=== PATIENT | male | born 1950 | race Caucasian/White ===

== ENCOUNTER 2017-07-27 21:10 | Emergency (ER) | payer SELFPAY ==
[~2017-07-27 21:10] MED LIST: Iopamidol 370 76% 100 ML VIAL ONE
[2017-07-27 21:46] LABS: INR-International Normal Ratio 0.9; PTT 30.9 SEC (22.9-36.1); Prothrombin Time 12.6 SEC (12.0-14.7)
[2017-07-27 21:55] LABS: ALT (SGPT) 22 U/L (8-55); AST (SGOT) 30 U/L (5-34); Acetaminophen Less than 6.0 mcg/mL (10.0-30.0); Albumin 3.3 g/dL (3.4-4.8); Alcohol 53 mg/dL (Less than 10); Alkaline Phosphatase 102 U/L (40-150); Anion Gap 16 mmol/L (10-20); BUN (Urea Nitrogen) 5 mg/dL (8.4-25.7); Bilirubin, Total 0.7 mg/dL (0.2-1.2); Calc. Creatinine Clearance 0 mL/min (70-130); Calcium 8.6 mg/dL (7.8-10.44); Carbon Dioxide 22 mmol/L (23-31); Chloride 95 mmol/L (98-107); Estimated GFR-MDRD Greater than 90; Globulin 3.2 g/dL (2.4-3.5); Glucose 170 mg/dL (80-115); Potassium 3.3 mmol/L (3.5-5.1); Protein, Total 6.5 g/dL (5.8-8.1); Salicylate Less than 8.0 mg/dL (15.0-30.0); Sodium 130 mmol/L (136-145)
[2017-07-27 21:56] LABS: #Basophils 0.1 thou/uL (0.0-0.2); #Eosinphils 0.1 thou/uL (0.0-0.7); #Lymphocytes 1.6 thou/uL (1.20-3.40); #Monocytes 0.7 thou/uL (0.11-0.59); #Neutrophils 6.5 thou/uL (1.40-6.50); %Basophils 0.8 % (0.0-1.0); %Eosinophils 0.7 % (0.0-10.0); %Lymphocytes 17.5 % (21.0-51.0); %Monocytes 7.8 % (0.0-10.0); %Neutrophils 73.1 % (42.0-75.0); Hemoglobin 14.2 g/dL (14.0-18.0); Mean Corpuscular HGB CONC 35.8 g/dL (32.0-36.0); Mean Corpuscular Hemoglobin 35.6 pg (27.0-31.0); Mean Corpuscular Volume 99.4 fl (80.0-94.0); Mean Platelet Volume 6.7 fL (7.4-10.4); PLT Morphology Comment Appears Adequate; Platelet Count 201 thou/uL (130-400); RBC Distribution Width 10.1 % (11.5-14.5); RBC Morphology Normal; Red Blood Cell (RBC) Count 3.98 mill/uL (4.70-6.10); White Blood Cell (WBC) Count 8.9 thou/uL (4.8-10.8)
[2017-07-27 21:58] LABS: Manual Diff?? NO
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
[2017-07-27] MEDS ORDERED: levETIRAcetam 500 MG/5 ML VIAL ONE (22:18)
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
[2017-07-27] MEDS ORDERED: Fentanyl 100 MCG/2 ML VIAL ONE (22:33)
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
--- NOTE | 2017-07-27 22:52 | RAD ---
FIVE VIEWS OF THE RIGHT KNEE: 07/27/18 INDICATION: Right knee pain. FINDINGS: There is a comminuted fracture involving the right knee. There is a lipohemarthrosis involving the r ight knee. There is a prominent vascular calcification seen within the posterior soft tissues. No ad ditional fracture is grossly evident. IMPRESSION: Comminuted, nondisplaced fracture involving the patella with associated lipohemarthrosis. POS: [facility]
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
== END 2017-07-27 22:35 | disposition short-term general hospital (02) ==
LOC: EDBD 21:10 → BURERS 21:10
DX: S06.5X0A Traumatic subdural hemorrhage without loss of consciousness, initial encounter (principal); S50.812A Abrasion of left forearm, initial encounter; V54.5XXA Driver of pick-up truck or van injured in collision with heavy transport vehicle or bus in traffic accident, initial encounter
CPT/HCPCS: 70450; 71010; 72125; 74177; 80053; 80307; 85025; 85610; 85730; 96374; 96375; J1953; J3010